=== PATIENT | female | born 1975 | race African-American/Black ===

== ENCOUNTER 2018-01-22 23:09 | Emergency (ER) | payer BC ==
[~2018-01-22] VITALS: Ht 172.7 cm; Wt 102.1 kg
[2018-01-22] MEDS ORDERED: LEVOTHYROXINE137 MCG PO (23:36)
[2018-01-22] MEDS ORDERED: CYTOMEL5 MCG PO (23:37)
[2018-01-22] MEDS ORDERED: ORALONE5 GM DT (23:38)
[2018-01-22] MEDS ORDERED: JUNEL FE 1 MG-1 EACH PO (23:38)
== END 2018-01-23 22:14 | disposition home or self-care (01) ==
LOC: ER 23:09
DX: I82.491 Acute embolism and thrombosis of other specified deep vein of right lower extremity (principal); I87.2 Venous insufficiency (chronic) (peripheral); M79.661 Pain in right lower leg

== ENCOUNTER → 2018-02-21 10:27 | Outpatient (CLI) | payer BC ==
[~2018-02-21 10:27] MED LIST: CYTOMEL5 MCG PO; JUNEL FE 1 MG-1 EACH PO; LEVOTHYROXINE137 MCG PO; ORALONE5 GM DT
== END | disposition home or self-care (01) ==
LOC: LAB 10:27
DX: D69.8 Other specified hemorrhagic conditions (principal); D50.8 Other iron deficiency anemias; D68.59 Other primary thrombophilia

== ENCOUNTER 2018-02-22 11:50 | Outpatient (CLI) | payer BC | END 2018-02-22 15:54 | disposition home or self-care (01) | LOC: TOM 11:50 | DX: C81.93 Hodgkin lymphoma, unspecified, intra-abdominal lymph nodes (principal) ==

== ENCOUNTER 2018-02-22 13:28 | Outpatient (CLI) | payer BC | END 2018-02-22 14:02 | disposition home or self-care (01) | LOC: LAB 13:28 | DX: D69.8 Other specified hemorrhagic conditions (principal); D50.8 Other iron deficiency anemias; D68.59 Other primary thrombophilia ==

== ENCOUNTER 2018-03-09 09:11 | Emergency (ER) | payer BC ==
[~2018-03-09] VITALS: Ht 172.7 cm; Wt 61.2 kg
== END 2018-03-09 14:51 | disposition home or self-care (01) ==
LOC: ER 09:11
DX: S00.03XA Contusion of scalp, initial encounter (principal); W22.8XXA Striking against or struck by other objects, initial encounter; Y93.89 Activity, other specified; Y92.69 Other specified industrial and construction area as the place of occurrence of the external cause; Y99.8 Other external cause status